=== PATIENT | female | born 1970 | race Caucasian/White ===

== ENCOUNTER 2018-05-15 14:55 | Emergency (ER) | payer MEDICAID, OTHER ==
[~2018-05-15] VITALS: Ht 142.2 cm; Wt 92.8 kg
[2018-05-15 14:57] VITALS: BP 153/90
[2018-05-15] MEDS ORDERED: IBUPROFEN 200 MG TABLET ONE (15:23)
[2018-05-15] MEDS ORDERED: IBUPROFEN 200 MG TABLET PO ONE (15:30)
== END 2018-05-15 15:40 | disposition home or self-care (01) ==
LOC: ED 15:10
DX: K04.7 Periapical abscess without sinus (principal)
CPT/HCPCS: 99283